=== PATIENT | female | born 1930 | race Two or more races ===

== ENCOUNTER 2019-05-03 10:28 | Inpatient (IN) | payer OTHER, MEDICAID ==
[~2019-05-03] VITALS: Ht 157.5 cm; Wt 48.1 kg
[2019-05-03] MEDS ORDERED: SODIUM CHLORIDE 0.9% 1,000 ML IV ONE (11:02)
[2019-05-03 11:16] LABS: Basophils # (auto) 0 uL; Basophils % (auto) 0.4 % (0.0-2.0); Eosinophils # (auto) 0 uL; Eosinophils % (auto) 0.7 % (0.0-7.0); Hematocrit 48.6 % (36.0-46.0); Hemoglobin 15.4 g/dL (12.2-16.2); Lymphocytes # (auto) 0.9 uL; Lymphocytes % (auto) 13.4 % (10.0-50.0); Mean Corpuscular Hgb Conc. 31.6 g/dL (32.0-36.0); Mean Corpuscular Volume 97.9 fL (80.0-100.0); Monocytes # (auto) 0.5 uL; Monocytes % (auto) 7.2 % (0.0-12.0); Neutrophils # (auto) 5.2 uL; Neutrophils % (auto) 78.3 % (37.0-80.0); Nucleated Red Blood Cells % 0.1 %; Platelet Count (auto) 216 10^3/uL (140-450); Red Blood Cells 4.97 10^6/uL (4.0-5.20); White Blood Cell 6.7 10^3/uL (4.4-10.8)
[2019-05-03 11:48] LABS: Urine Bacteria MOD /hpf (None Seen); Urine Blood TRACE /uL (Negative); Urine Hyaline Cast FEW /lpf (0 - 2); Urine Mucus FEW (None Seen); Urine Specific Gravity 1.024 (1.001-1.035); Urine WBC 41 /hpf (0 - 5)
[2019-05-03 11:52] LABS: Alanine Aminotransferase 13 U/L (13-56); Albumin 2.1 g/dL (3.4-5.0); Alkaline Phosphatase 166 U/L (45-117); Anion Gap 11 (5-15); Aspartate Aminotransferase 27 U/L (15-37); BUN/Creatinine Ratio 21.3; Bilirubin, Total 1.2 mg/dL (0.2-1.0); Blood Alcohol < 3.0 mg/dL (0-5); Blood Urea Nitrogen 17 mg/dL (7-18); Calcium 9.1 mg/dL (8.5-10.1); Carbon Dioxide 25 mmol/L (21-32); Chloride 105 mmol/L (98-107); GFR African American 87 mL/min; GFR Non-African American 72 mL/min; Glucose 117 mg/dL (74-106); Sodium 141 mmol/L (136-145); Total Protein 6.9 g/dL (6.4-8.2)
[2019-05-03 12:00] LABS: Potassium 2.8 mmol/L (3.5-5.1)
[2019-05-03] MEDS: POTASSIUM CHL 20MEQ/100ML 100 ML IV SCH ×2 (12:40→14:52)
[2019-05-03] MEDS ORDERED: HYDROcodone-ACET 5/325MG TAB PO PRN (13:45)
[2019-05-03] MEDS ORDERED: MORPHINE SULF INJ 2 MG/ML SYRINGE 1ML IV PRN ×2 (13:45)
[2019-05-03] MEDS ORDERED: ONDANSETRON HCL 4 MG/2 ML VIAL IV PRN (13:45)
[2019-05-03] MEDS ORDERED: NITROGLYCERIN 0.4 MG SL TAB SL PRN (13:45)
[2019-05-03] MEDS ORDERED: ACETAMINOPHEN 500 MG TAB PO PRN (13:45)
[2019-05-03] MEDS: SODIUM CHLORIDE 0.9% 1,000 ML IV SCH (14:06)
[2019-05-03 16:26] VITALS: BP 97/46
[2019-05-03] MEDS: Ensure HIGH Protein Chocolate 8oz Bottle PO SCH (18:00)
[2019-05-03] MEDS: DOCUSATE SOD 100 MG CAP PO SCH (21:26)
[2019-05-03] MEDS: ATORVASTATIN 20 MG TAB PO SCH (21:26)
[2019-05-03 22:00] VITALS: BP 115/71
[2019-05-04] MEDS: SODIUM CHLORIDE 0.9% 1,000 ML IV SCH ×3 (01:39→19:32)
[2019-05-04 05:00] VITALS: BP 134/66
[2019-05-04 06:20] LABS: Basophils # (auto) 0 uL; Basophils % (auto) 0.3 % (0.0-2.0); Eosinophils # (auto) 0 uL; Eosinophils % (auto) 0.5 % (0.0-7.0); Hematocrit 35.7 % (36.0-46.0); Hemoglobin 11.9 g/dL (12.2-16.2); Lymphocytes # (auto) 0.9 uL; Lymphocytes % (auto) 13.5 % (10.0-50.0); Mean Corpuscular Hemoglobin 31.7 pg (28.0-32.0); Mean Corpuscular Hgb Conc. 33.3 g/dL (32.0-36.0); Monocytes # (auto) 0.5 uL; Neutrophils % (auto) 77.7 % (37.0-80.0); Nucleated Red Blood Cells % 0.1 %; Platelet Count (auto) 200 10^3/uL (140-450); Red Blood Cells 3.76 10^6/uL (4.0-5.20); Red Cell Distribution Width 17.8 % (11.8-14.3); White Blood Cell 6.4 10^3/uL (4.4-10.8)
[2019-05-04 06:40] LABS: Potassium 3.2 mmol/L (3.5-5.1)
[2019-05-04 06:53] LABS: BUN/Creatinine Ratio 19.7; Bilirubin, Total 1.1 mg/dL (0.2-1.0); Calcium 7.8 mg/dL (8.5-10.1); Total Protein 5.4 g/dL (6.4-8.2)
[2019-05-04] MEDS: Ensure HIGH Protein Chocolate 8oz Bottle PO SCH ×3 (08:00→18:00)
[2019-05-04] MEDS: cefTRIAXone 1GM/50ML D5W 50 ML IV SCH (08:54)
[2019-05-04 09:10] VITALS: BP 125/77
[2019-05-04] MEDS: DOCUSATE SOD 100 MG CAP PO SCH ×2 (09:43→21:01)
[2019-05-04] MEDS: ENOXAPARIN SOD 30 MG/0.3 ML SYRINGE SC SCH (09:43)
[2019-05-04] MEDS: FAMOTIDINE 20 MG TAB PO SCH (09:43)
[2019-05-04] MEDS ORDERED: POTASSIUM CHL 20MEQ/100ML 100 ML IV ONE (10:45)
[2019-05-04 12:50] VITALS: BP 125/64
[2019-05-04 16:33] VITALS: BP 129/52
[2019-05-04] MEDS: ATORVASTATIN 20 MG TAB PO SCH (21:02)
[2019-05-04 21:47] VITALS: BP 122/64
[2019-05-05 04:33] VITALS: BP 107/61
[2019-05-05] MEDS: SODIUM CHLORIDE 0.9% 1,000 ML IV SCH ×2 (04:43→15:32)
[2019-05-05] MEDS ORDERED: OMNIPAQUE ORAL SOLN 500ml 12mg/ml PO ONE (07:48)
[2019-05-05] MEDS: Ensure HIGH Protein Chocolate 8oz Bottle PO SCH ×2 (08:00→12:00)
[2019-05-05 09:00] VITALS: BP 121/65
[2019-05-05 09:59] LABS: Basophils # (auto) 0 uL; Basophils % (auto) 0.4 % (0.0-2.0); Eosinophils # (auto) 0.1 uL; Eosinophils % (auto) 0.9 % (0.0-7.0); Hemoglobin 12.5 g/dL (12.2-16.2); Lymphocytes % (auto) 15.1 % (10.0-50.0); Mean Corpuscular Hemoglobin 31.4 pg (28.0-32.0); Mean Corpuscular Hgb Conc. 33.8 g/dL (32.0-36.0); Mean Corpuscular Volume 92.9 fL (80.0-100.0); Monocytes # (auto) 0.5 uL; Neutrophils # (auto) 4.9 uL; Neutrophils % (auto) 75.6 % (37.0-80.0); Nucleated Red Blood Cells % 0.1 %; Platelet Count (auto) 198 10^3/uL (140-450); Red Blood Cells 3.98 10^6/uL (4.0-5.20); Red Cell Distribution Width 17.7 % (11.8-14.3); White Blood Cell 6.5 10^3/uL (4.4-10.8)
[2019-05-05] MEDS: ENOXAPARIN SOD 30 MG/0.3 ML SYRINGE SC SCH (10:00)
[2019-05-05] MEDS: DOCUSATE SOD 100 MG CAP PO SCH (10:00)
[2019-05-05] MEDS: FAMOTIDINE 20 MG TAB PO SCH (10:00)
[2019-05-05] MEDS: cefTRIAXone 1GM/50ML D5W 50 ML IV SCH (10:00)
[2019-05-05 10:58] LABS: BUN/Creatinine Ratio 12.5; Calcium 7.4 mg/dL (8.5-10.1); Magnesium 1.6 mg/dL (1.6-2.6)
[2019-05-05 11:08] LABS: Potassium 2.9 mmol/L (3.5-5.1)
[2019-05-05] MEDS: POTASSIUM CHL 20MEQ/100ML 100 ML IV SCH ×3 (12:34→15:15)
[2019-05-05 13:00] VITALS: BP 129/62
[2019-05-05] MEDS: MAGNESIUM SULFATE 1GM/100ML 100 ML IV SCH ×2 (13:00→14:00)
[2019-05-05 15:21] LABS: Free T4 (Free Thyroxine) 0.92 ng/dL (0.89-1.76)
[2019-05-05 15:22] LABS: Folate (Folic Acid) 6.78 ng/mL (5.38-24)
[2019-05-05 16:44] VITALS: BP 123/66
[2019-05-06 04:06] LABS: RPR Non Reactive (Non Reactive)
== END 2019-05-05 17:56 | disposition hospice, home (50) | DRG 640 ==
LOC: EDBD 10:28 → ER 10:32 → TELE 10:33 → TELE-EAST 14:29
PROVIDERS: ADMIT Nurse Practitioner Acute Care; ATTEND Internal Medicine
DX: E87.6 Hypokalemia (principal); G93.41 Metabolic encephalopathy; E43 Unspecified severe protein-calorie malnutrition; N39.0 Urinary tract infection, site not specified; Z68.1 Body mass index [BMI] 19.9 or less, adult; E86.0 Dehydration; R62.7 Adult failure to thrive; E78.5 Hyperlipidemia, unspecified; Z86.73 Personal history of transient ischemic attack (TIA), and cerebral infarction without residual deficits; R19.00 Intra-abdominal and pelvic swelling, mass and lump, unspecified site; F03.90 Unspecified dementia, unspecified severity, without behavioral disturbance, psychotic disturbance, mood disturbance, and anxiety
CPT/HCPCS: 36415; 70450; 71045; 80048; 80053; 80320; 81001; 82607; 82746; 83735; 84132; 84439; 84443; 85025; 86592; 87086; 87088; 87186; 92610; 93005; 96361; 96365; 96372; 97163; G0378; J0696; J3480

== ENCOUNTER 2019-05-09 16:59 | Inpatient (IN) | payer OTHER, MEDICAID ==
[~2019-05-09] VITALS: Ht 152.4 cm; Wt 47.5 kg
[2019-05-09 17:46] LABS: Basophils # (auto) 0 uL; Basophils % (auto) 0.6 % (0.0-2.0); Eosinophils # (auto) 0 uL; Eosinophils % (auto) 0.5 % (0.0-7.0); Hematocrit 36.4 % (36.0-46.0); Hemoglobin 12.1 g/dL (12.2-16.2); Lymphocytes # (auto) 0.6 uL; Lymphocytes % (auto) 9.5 % (10.0-50.0); Mean Corpuscular Hemoglobin 31.2 pg (28.0-32.0); Mean Corpuscular Hgb Conc. 33.3 g/dL (32.0-36.0); Mean Corpuscular Volume 93.8 fL (80.0-100.0); Monocytes # (auto) 0.3 uL; Monocytes % (auto) 5.8 % (0.0-12.0); Neutrophils % (auto) 83.6 % (37.0-80.0); Nucleated Red Blood Cells % 0.1 %; Platelet Count (auto) 205 10^3/uL (140-450); Red Blood Cells 3.88 10^6/uL (4.0-5.20); Red Cell Distribution Width 17.9 % (11.8-14.3)
[2019-05-09 18:04] LABS: BUN/Creatinine Ratio 7.6; Calcium 7.8 mg/dL (8.5-10.1); Potassium 3.2 mmol/L (3.5-5.1)
[2019-05-09 18:07] LABS: Bilirubin, Total 1.6 mg/dL (0.2-1.0); Total Protein 5.7 g/dL (6.4-8.2)
[2019-05-09] MEDS ORDERED: POTASSIUM EFFERVESENT TAB 25 MEQ PO ONE (20:30)
[2019-05-09] MEDS ORDERED: MORPHINE SULF INJ 2 MG/ML SYRINGE 1ML IV PRN (22:15)
[2019-05-09] MEDS ORDERED: NITROGLYCERIN 0.4 MG SL TAB SL PRN (22:15)
[2019-05-09] MEDS ORDERED: ACETAMINOPHEN 500 MG TAB PO PRN (22:15)
--- NOTE | 2019-05-10 01:11 | NUR ---
0010Telemetry admit from [facility] admitted to Telemetry unit Patient oriented to GUEVARA RUSSELL, rohan RN, unit, room, bed, and unit policies regarding patient care and visiting hours. Patient now on continuous telemetry monitoring, tele box #65 and telemetry reading on arrival to unit is NSR . Patient weighed by bed scale and encouraged to call if they need something. All questions and concerns addressed, patient verbalized understanding. Note:Patient alert and oriented X2, knows name and that she is in the hospital. Skin assessment scattered bruising to both upper and lower extremities, scabs on both lower extremities, open excoriations on buttocks (pictures taken). Bed alarm turned on, call mason with in reach, bed in low position.
[2019-05-10 05:38] VITALS: BP 144/74
[2019-05-10 07:04] LABS: Albumin 1.6 g/dL (3.4-5.0); BUN/Creatinine Ratio 10.2; Bilirubin, Total 1.1 mg/dL (0.2-1.0); Calcium 7.5 mg/dL (8.5-10.1); Potassium 3.9 mmol/L (3.5-5.1); Total Protein 5.1 g/dL (6.4-8.2)
[2019-05-10 08:00] VITALS: BP 131/56
--- NOTE | 2019-05-10 08:00 | NUR ---
OPENING SHIFT NOTE ASSUMED CARE OF PATIENT. PATIENT IS AWAKE AND ALERT. NO SOB OR SIGNS OF DISTRESS NOTED. INSTRUCTED ON POC AND TO CALL FOR HELP PRN. BED IN LOWEST POSITION WITH SIDE RAILS UP X2. WILL CONTINUE TO MONITOR.
[2019-05-10 08:58] LABS: Basophils # (auto) 0 uL; Basophils % (auto) 0.4 % (0.0-2.0); Eosinophils # (auto) 0.1 uL; Eosinophils % (auto) 1.4 % (0.0-7.0); Hematocrit 34.6 % (36.0-46.0); Hemoglobin 11.6 g/dL (12.2-16.2); Lymphocytes # (auto) 0.9 uL; Lymphocytes % (auto) 15.2 % (10.0-50.0); Mean Corpuscular Hemoglobin 31.3 pg (28.0-32.0); Mean Corpuscular Hgb Conc. 33.5 g/dL (32.0-36.0); Mean Corpuscular Volume 93.4 fL (80.0-100.0); Monocytes # (auto) 0.5 uL; Monocytes % (auto) 8.6 % (0.0-12.0); Neutrophils # (auto) 4.3 uL; Neutrophils % (auto) 74.4 % (37.0-80.0); Platelet Count (auto) 209 10^3/uL (140-450); Red Blood Cells 3.71 10^6/uL (4.0-5.20); Red Cell Distribution Width 18.7 % (11.8-14.3); White Blood Cell 5.8 10^3/uL (4.4-10.8)
[2019-05-10] MEDS: ASPirin-EC 81 mg tab PO SCH (10:56)
[2019-05-10] MEDS: PANTOPRAZOLE 40 MG TAB PO SCH (10:56)
[2019-05-10] MEDS: DOCUSATE SOD 100 MG CAP PO SCH (10:57)
[2019-05-10] MEDS: CALCIUM W/VIT D (600MG/400IU) TAB PO SCH (10:57)
[2019-05-10 13:50] VITALS: BP 131/61
[2019-05-10 16:02] LABS: Urine Bacteria FEW /hpf (None Seen); Urine Blood TRACE /uL (Negative); Urine Mucus FEW (None Seen); Urine Specific Gravity 1.017 (1.001-1.035); Urine WBC 14 /hpf (0 - 5)
[2019-05-10 16:55] VITALS: BP 144/70
--- NOTE | 2019-05-10 19:15 | NUR ---
Opening Shift Note Assumed care of patient, awake and alert. No S/S of distress/SOB or pain. Instructed on POC and to call for assist PRN, will continue to monitor for changes Q1hr and PRN. Call mason with in reach, bed in low position.
[2019-05-10 20:27] VITALS: BP 132/72
[2019-05-10 22:24] VITALS: BP 139/64
[2019-05-11 05:00] VITALS: BP_SYST 119; BP_SYST 146; BP_DIAS 54; BP_DIAS 83
[2019-05-11 05:57] LABS: Urine Bacteria NONE SEEN /hpf (None Seen); Urine Blood Negative /uL (Negative); Urine Specific Gravity 1.016 (1.001-1.035); Urine WBC 6 /hpf (0 - 5)
[2019-05-11] MEDS ORDERED: LEVOTHYROXINE SODIUM 25 MCG TAB PO SCH (07:00)
--- NOTE | 2019-05-11 07:39 | NUR ---
Opening Note Assumed pt care from [facility] nurse. Pt is a/o3-4, periods of confusion r/t place. Pt at this time stated "I just want to sleep... dont bug me". No s/s of distress or SOB. Discussed POC with pt. Safety measures maintained with call light within reach, bed in lowest position and side rails up. Will continue to monitor for changes q1hr and prn.
[2019-05-11 09:00] VITALS: BP 145/68
[2019-05-11] MEDS ORDERED: cefTRIAXone 1GM/50ML D5W 50 ML IV SCH (09:00)
[2019-05-11] MEDS: PANTOPRAZOLE 40 MG TAB PO SCH (09:17)
[2019-05-11] MEDS: ASPirin-EC 81 mg tab PO SCH (09:17)
[2019-05-11] MEDS: DOCUSATE SOD 100 MG CAP PO SCH (09:17)
[2019-05-11] MEDS: CALCIUM W/VIT D (600MG/400IU) TAB PO SCH (09:18)
--- NOTE | 2019-05-11 09:21 | NUR ---
Attempted to Perform Wound Care Notified by NOC nurse that pt has skin tears to buttocks. Attempted to place an optifoam on buttock to protect site and prevent further breakdown, patient refused. Will continue to monitor.
[2019-05-11 13:00] VITALS: BP 130/69
--- NOTE | 2019-05-11 13:02 | NUR ---
Patient's Family Requested Call Dr Pacheco for Update Called and left a message for Dr Pacheco. Pt's family is requesting that MD comes to see patient for an update. Awaiting call roby and will update the family.
--- NOTE | 2019-05-11 15:39 | NUR ---
Patient's Family Would Like for Patient to Leave Against Medical Advice Pt's family members have expressed that they would like to take the patient home. They stated that they "do not like the care provided here". Pt's Iveth MOLINA, signed the paper on behalf of the patient. Charge nurse Mariah was present in room for expression of desire to leave as well as the signing of the paper. Patient and family members were told and are aware of risks of leaving against medical advice. Patient and family members verbalized understanding and wish to proceed.
--- NOTE | 2019-05-11 15:47 | NUR ---
IV Removal IV to pt's R AC removed. Removed fully intact with site being asymptomatic. Pressure applied to site for 3 minutes with gauze and then wrapped in coban. Patient and pt's family members education on keeping the dressing on for 30 minutes; both verbalized understanding.
--- NOTE | 2019-05-11 15:50 | NUR ---
Tele-Box Removed and Sent Back Telebox 65 removed and sent back to ICU monitor station.
--- NOTE | 2019-05-11 16:23 | NUR ---
Patient Discharged off Unit Patient left AMA off unit. Pt left via wheelchair accompanied by her two family members. IV was D/C'ed and tele-box was removed and sent back to ICU monitor techs. AMA form is in chart.
--- NOTE | 2019-05-11 16:49 | NUR ---
Spoke with Dr Sanchez Spoke with MD about pt's decision to leave AMA. aware.
== END 2019-05-11 16:15 | disposition left against medical advice (07) | DRG 312 ==
LOC: ER 16:59 → EDBD 16:59 → TELE 17:00 → TELE-WESTW 22:48
PROVIDERS: ADMIT Specialist; ATTEND Specialist
DX: R55 Syncope and collapse (principal); N39.0 Urinary tract infection, site not specified; D64.9 Anemia, unspecified; E03.9 Hypothyroidism, unspecified; E78.5 Hyperlipidemia, unspecified; E86.1 Hypovolemia; F03.90 Unspecified dementia, unspecified severity, without behavioral disturbance, psychotic disturbance, mood disturbance, and anxiety; E87.6 Hypokalemia; Z87.440 Personal history of urinary (tract) infections
CPT/HCPCS: 36415; 70450; 80053; 81001; 82607; 84443; 85025; 87081; 87086; 87493; 93005; 93306; 93886; 96365; G0378; J0696